=== PATIENT | female | born 1955 | race American Indian/Alaskan Native ===

== ENCOUNTER 2017-09-17 11:31 | Emergency (ER) | payer MEDICAID ==
[2017-09-17 12:11] LABS: Basophils % (Auto) 0.5 % (0.0-1.8); Eosinophils % (Auto) 1.7 % (0.0-4.3); Hemoglobin 12.7 gm/dl (10.1-14.3); Mean Corpuscular HGB Conc 34 % (30-34); Mean Corpuscular Hemoglobin 28 pg (28-32); Mean Corpuscular Volume 83 fl (79-97); Platelet Count 259 K/mm3 (140-440); Red Blood Count 4.59 M/mm3 (3.65-5.03); Red Cell Distribution Width 13.4 % (13.2-15.2); White Blood Count 7.9 K/mm3 (4.5-11.0)
[2017-09-17 12:31] LABS: Alanine Aminotransferase 14 units/L (7-56); Albumin/Globulin Ratio 1.1 %; Alkaline Phosphatase 124 units/L (35-129); Anion Gap 18 mmol/L; BUN/Creatinine Ratio 13; Blood Urea Nitrogen 9 mg/dL (7-17); Calcium 9.4 mg/dL (8.4-10.2); Carbon Dioxide 26 mmol/L (22-30); Chloride 100.5 mmol/L (98-107); Glucose 143 mg/dL (65-100); Lipase 38 units/L (13-60); Potassium 3.9 mmol/L (3.6-5.0); Sodium 141 mmol/L (137-145); Total Protein 7.8 g/dL (6.3-8.2)
[2017-09-17 12:49] LABS: Bilirubin,Urine NEG (Negative); Blood,Urine NEG (Negative); Ketones,Urine NEG (Negative); Leukocyte Esterase,Urine NEG (Negative); Mucus,Urine FEW /HPF; Nitrite,Urine NEG (Negative); Protein,Urine <15 mg/dL mg/dL (Negative); Urobilinogen,Urine < 2.0 mg/dL (<2.0)
--- NOTE | 2017-09-17 13:12 | XRay Report ---
CHEST 2 VIEWS INDICATION: Cough. COMPARISON: None similar. FINDINGS: PA and lateral chest radiographs demonstrate normal cardiomediastinal silhouette. Clear lungs. Mild thoracic spine degenerative spurring. CONCLUSION: No acute disease in the chest. Thank you for the opportunity to participate in this patient's care.
--- NOTE | 2017-09-17 21:32 | Emergency Department Report ---
ED Abdominal Pain HPI - General Chief Complaint: Abdominal Pain Stated Complaint: GENERAL SICKNESS Time Seen by Provider: 09/17/17 21:17 Source: patient Mode of arrival: Ambulatory Limitations: No Limitations - History of Present Illness Initial Comments: 62 YO FEMALE WITH TWO DAYS OF INDISTINCT ABDOMINAL PAIN, WITH NAUSEA,VOMITING. SHE HAS HAD SORE THROAT AND COUGHING WITH SPUTUM PRODUCTION AND WOULD HAVE USE HER EPI PEN EXCEPT SHE DID NOT HAVE ONE. PT HAS NOT UNDERSTANDING OF TRUE USE OF EPI PEN. THIS IS THE FIRST TIME SHE AHD=S HAD ABDOMINAL DISCOMFORT. - Related Data Home Medications Medication Instructions Recorded Confirmed Last Taken Venlafaxine HCl [Effexor Xr] 37.5 mg PO DAILY 01/07/17 01/07/17 01/07/17 amLODIPine [Norvasc] 5 mg PO DAILY 01/07/17 01/07/17 01/07/17 Previous Rx's Medication Instructions Recorded Last Taken Type Cetirizine HCl [Zyrtec] 10 mg PO DAILY #30 tablet 09/17/17 Unknown Rx Pantoprazole [Protonix TAB] 20 mg PO QDAY #20 tablet. 09/17/17 Unknown Rx Allergies Allergy/AdvReac Type Severity Reaction Status Date / Time Unable to Assess Allergy Unverified 01/06/17 23:49 ED Review of Systems ROS: Stated complaint: GENERAL SICKNESS Other details as noted in HPI Constitutional: denies: chills, fever Eyes: denies: eye pain, eye discharge, vision change ENT: denies: ear pain, throat pain Respiratory: cough, other (SPUTUM ). denies: shortness of breath, wheezing Cardiovascular: denies: chest pain, palpitations Endocrine: no symptoms reported Gastrointestinal: abdominal pain, nausea, vomiting. denies: diarrhea Genitourinary: denies: urgency, dysuria, discharge Musculoskeletal: denies: back pain, joint swelling, arthralgia Skin: denies: rash, lesions Neurological: denies: headache, weakness, paresthesias Psychiatric: denies: anxiety, depression Hematological/Lymphatic: denies: easy bleeding, easy bruising ED Past Medical Hx - Past Medical History Previous Medical History?: Yes Hx Asthma: Yes (SEASONAL ALLERGIES) Additional medical history: Allergies - Surgical History Past Surgical History?: Yes Additional Surgical History: foot & hand surgery - Social History Smoking Status: Never Smoker Substance Use Type: None - Medications Home Medications: Home Medications Medication Instructions Recorded Confirmed Last Taken Type Venlafaxine HCl [Effexor Xr] 37.5 mg PO DAILY 01/07/17 01/07/17 01/07/17 History amLODIPine [Norvasc] 5 mg PO DAILY 01/07/17 01/07/17 01/07/17 History Cetirizine HCl [Zyrtec] 10 mg PO DAILY #30 tablet 09/17/17 Unknown Rx Pantoprazole [Protonix TAB] 20 mg PO QDAY #20 tablet. 09/17/17 Unknown Rx ED Physical Exam - General Limitations: No Limitations General appearance: alert, in no apparent distress - Head Head exam: Present: atraumatic, normocephalic - Eye Eye exam: Present: normal appearance, EOMI - ENT ENT exam: Present: mucous membranes moist - Neck Neck exam: Present: normal inspection - Respiratory Respiratory exam: Present: normal lung sounds bilaterally. Absent: respiratory distress - Cardiovascular Cardiovascular Exam: Present: regular rate, normal rhythm. Absent: systolic murmur, diastolic murmur, rubs, gallop - GI/Abdominal GI/Abdominal exam: Present: soft, normal bowel sounds, other (LARGE CENTRIPITAL FAT). Absent: distended, tenderness, guarding, rebound - Rectal Rectal exam: Present: deferred - Extremities Exam Extremities exam: Present: normal inspection, full ROM - Back Exam Back exam: Present: normal inspection, full ROM - Neurological Exam Neurological exam: Present: alert, oriented X3, CN II-XII intact - Psychiatric Psychiatric exam: Present: normal affect, normal mood - Skin Skin exam: Present: warm, dry, intact, normal color. Absent: rash ED Course Vital Signs 09/17/17 09/17/17 09/17/17 11:47 19:50 20:40 Temperature 98.4 F 98.7 F Pulse Rate 72 70 Respiratory 20 16 20 Rate Blood Pressure 152/83 Blood Pressure 127/76 [Left] O2 Sat by Pulse 97 99 99 Oximetry 09/17/17 09/17/17 21:00 23:00 Temperature 98.4 F 98.4 F Pulse Rate 79 78 Respiratory 20 20 Rate Blood Pressure Blood Pressure 111/76 114/79 [Left] O2 Sat by Pulse 99 99 Oximetry ED Medical Decision Making - Lab Data Result diagrams: 09/17/17 11:58 12/22/17 11:58 - Radiology Data Radiology results: report reviewed (ACUTE ABD SERIES:NEGATIVE) - Medical Decision Making LABS ARE NEGATIVE, IF ACUTE ABD SERIES IS NEGATIVE , I WILL SEND HER HOME WITH PROTONIX AD ZYRTEC Critical care attestation.: If time is entered above; I have spent that time in minutes in the direct care of this critically ill patient, excluding procedure time. ED Disposition Clinical Impression: Abdominal pain Qualifiers: Abdominal location: unspecified location Qualified Code(s): R10.9 - Unspecified abdominal pain Seasonal allergies Qualifiers: Chronicity: acute Allergic rhinitis trigger: pollen Qualified Code(s): J30.1 - Allergic rhinitis due to pollen Disposition: DC-01 TO HOME OR SELFCARE Is pt being admited?: No Does the pt Need Aspirin: No Condition: Stable Instructions: Allergies (ED), Abdominal Pain (ED) Prescriptions: Cetirizine HCl [Zyrtec] 10 mg PO DAILY #30 tablet Pantoprazole [Protonix TAB] 20 mg PO QDAY #20 tablet.dr Referrals: JUANI JETER MD [Primary Care Provider] - 3-5 Days Time of Disposition: 00:20
[2017-09-17 23:09] VITALS: BP 114/79
--- NOTE | 2017-09-18 00:10 | XRay Report ---
FINAL REPORT EXAM: XR ABDOMEN 2V HISTORY: ABD PAIN TECHNIQUE: Three views of the abdomen were submitted. FINDINGS: The overall bowel gas pattern is within normal limits. Free air is not seen. There is no evidence of mass effect or suspicious calcifications. The lung bases are clear. The skeletal structures do not show any acute changes. IMPRESSION: No acute process identified.
== END 2017-09-18 00:21 | disposition home or self-care (01) ==
LOC: ED 11:31
DX: R11.2 Nausea with vomiting, unspecified (principal); J30.2 Other seasonal allergic rhinitis; J45.909 Unspecified asthma, uncomplicated
CPT/HCPCS: 36415; 71020; 74020; 80053; 81001; 83690; 85025; 99284

== ENCOUNTER 2018-07-05 09:59 | Emergency (ER) | payer MEDICAID ==
[2018-07-05 11:23] VITALS: BP 157/58
[2018-07-05] MEDS ORDERED: PEPCID PO ONE (12:22)
[2018-07-05] MEDS ORDERED: DECADRON IM ONE (12:22)
--- NOTE | 2018-07-05 12:26 | Emergency Department Report ---
ED General Adult HPI - General Chief complaint: Allergic Reaction Stated complaint: ALLERGIC REACTION/NEEDS SHOT Time Seen by Provider: 07/05/18 12:21 Source: patient Mode of arrival: Ambulatory Limitations: No Limitations - History of Present Illness Initial comments: Patient is a 62-year-old Sonja female who has multiple allergies who states that she believes she has a food allergy from unknown seasoning that a friend put on some food. Patient states she had sensation in her throat was closing H felt lightheaded and itching. Patient took EpiPen yesterday. The patient states she still has some mild shortness of breath and some upper abdominal epigastric crampiness. Patient denies any fevers chills nausea vomiting at this time. - Related Data Home Medications Medication Instructions Recorded Confirmed Last Taken Venlafaxine HCl [Effexor Xr] 37.5 mg PO DAILY 01/07/17 01/07/17 01/07/17 amLODIPine [Norvasc] 5 mg PO DAILY 01/07/17 01/07/17 01/07/17 Previous Rx's Medication Instructions Recorded Last Taken Type Cetirizine HCl [Zyrtec] 10 mg PO DAILY #30 tablet 09/17/17 Unknown Rx Pantoprazole [Protonix TAB] 20 mg PO QDAY #20 tablet.dr 09/17/17 Unknown Rx Famotidine [Pepcid] 40 mg PO QHS #10 tablet 07/05/18 Unknown Rx Prednisone [predniSONE 10 mg 10 mg PO .TAPER #1 tab.ds.pk 07/05/18 Unknown Rx (6-Day Pack, 21 Tabs)] Allergies Allergy/AdvReac Type Severity Reaction Status Date / Time Sulfa (Sulfonamide Allergy Unknown Verified 07/05/18 11:18 Antibiotics) ED Review of Systems ROS: Stated complaint: ALLERGIC REACTION/NEEDS SHOT Other details as noted in HPI Comment: All other systems reviewed and negative ED Past Medical Hx - Past Medical History Hx Asthma: Yes (SEASONAL ALLERGIES) Additional medical history: Allergies - Surgical History Additional Surgical History: foot & hand surgery - Social History Smoking Status: Never Smoker Substance Use Type: Alcohol - Medications Home Medications: Home Medications Medication Instructions Recorded Confirmed Last Taken Type Venlafaxine HCl [Effexor Xr] 37.5 mg PO DAILY 01/07/17 01/07/17 01/07/17 History amLODIPine [Norvasc] 5 mg PO DAILY 01/07/17 01/07/17 01/07/17 History Cetirizine HCl [Zyrtec] 10 mg PO DAILY #30 tablet 09/17/17 Unknown Rx Pantoprazole [Protonix TAB] 20 mg PO QDAY #20 tablet. 09/17/17 Unknown Rx Famotidine [Pepcid] 40 mg PO QHS #10 tablet 07/05/18 Unknown Rx Prednisone [predniSONE 10 mg 10 mg PO .TAPER #1 tab.ds.pk 07/05/18 Unknown Rx (6-Day Pack, 21 Tabs)] ED Physical Exam - General Limitations: No Limitations General appearance: alert, in no apparent distress - Head Head exam: Present: atraumatic, normocephalic - Eye Eye exam: Present: normal appearance - ENT ENT exam: Present: mucous membranes moist - Neck Neck exam: Present: normal inspection - Respiratory Respiratory exam: Present: normal lung sounds bilaterally. Absent: respiratory distress, wheezes, rales, rhonchi - Cardiovascular Cardiovascular Exam: Present: regular rate, normal rhythm. Absent: systolic murmur, diastolic murmur, rubs, gallop - GI/Abdominal GI/Abdominal exam: Present: soft, normal bowel sounds. Absent: distended, tenderness, guarding, rebound - Extremities Exam Extremities exam: Present: normal inspection - Back Exam Back exam: Present: normal inspection - Neurological Exam Neurological exam: Present: alert, oriented X3 - Psychiatric Psychiatric exam: Present: normal affect, normal mood - Skin Skin exam: Present: warm, dry, intact, normal color. Absent: rash ED Course Vital Signs 07/05/18 11:18 Temperature 99.3 F Pulse Rate 72 Respiratory 16 Rate Blood Pressure 157/58 O2 Sat by Pulse 98 Oximetry ED Medical Decision Making - Medical Decision Making She is very stable and does not appear to be having any evidence of anaphylaxis at this time. Patient is requesting a shot of Decadron which will be given and the patient also was asked for a Medrol Dosepak. Critical care attestation.: If time is entered above; I have spent that time in minutes in the direct care of this critically ill patient, excluding procedure time. ED Disposition Clinical Impression: Food allergy Disposition: DC-01 TO HOME OR SELFCARE Is pt being admited?: No Does the pt Need Aspirin: No Condition: Stable Instructions: Food Allergy (ED) Prescriptions: Famotidine [Pepcid] 40 mg PO QHS #10 tablet Prednisone [predniSONE 10 mg (6-Day Pack, 21 Tabs)] 10 mg PO .TAPER #1 tab.ds.pk Referrals: PRIMARY CARE, [Primary Care Provider] - 3-5 Days Time of Disposition: 12:26
== END 2018-07-05 12:45 | disposition home or self-care (01) ==
LOC: ED 09:59
DX: T78.1XXA Other adverse food reactions, not elsewhere classified, initial encounter (principal); J45.909 Unspecified asthma, uncomplicated; Z88.2 Allergy status to sulfonamides; X58.XXXA Exposure to other specified factors, initial encounter
CPT/HCPCS: 96372; 99282; J1100

== ENCOUNTER 2018-12-17 16:48 | Emergency (ER) | payer MEDICAID ==
--- NOTE | 2018-12-17 17:07 | Emergency Department Report ---
Blank Doc - Documentation Documentation: 63 y/o c/o of nausea and migraine headache for x 1 week, bleeding from rectum, discharge from breast, SOB and numbness to fingers. She also began feeling weakness and dizziness and was afraid she was loosing blood so she called EMS
[2018-12-17 17:27] LABS: Basophils # (Auto) 0.1 K/mm3 (0.0-0.1); Basophils % (Auto) 1.4 % (0.0-1.8); Eosinophils # (Auto) 0.1 K/mm3 (0.0-0.4); Eosinophils % (Auto) 1.2 % (0.0-4.3); Hematocrit 38.9 % (30.3-42.9); Hemoglobin 13.2 gm/dl (10.1-14.3); Lymphocytes # (Auto) 2.4 K/mm3 (1.2-5.4); Lymphocytes % (Auto) 25.7 % (13.4-35.0); Mean Corpuscular HGB Conc 34 % (30-34); Mean Corpuscular Volume 83 fl (79-97); Monocytes # (Auto) 0.6 K/mm3 (0.0-0.8); Monocytes % (Auto) 6.5 % (0.0-7.3); Platelet Count 281 K/mm3 (140-440); Red Blood Count 4.68 M/mm3 (3.65-5.03); Red Cell Distribution Width 13.9 % (13.2-15.2)
[2018-12-17 17:52] LABS: Alanine Aminotransferase 19 units/L (7-56); Albumin 4.6 g/dL (3.9-5); BUN/Creatinine Ratio 10; Blood Urea Nitrogen 10 mg/dL (7-17); Calcium 9.8 mg/dL (8.4-10.2); Hemolysis Index 12
--- NOTE | 2018-12-17 18:14 | XRay Report ---
PROCEDURE: XR CHEST ROUTINE 2V TECHNIQUE: PA and lateral chest radiographs. HISTORY: Shortness of breath. COMPARISONS: None available. FINDINGS: Lung volumes normal. No focal consolidation, pleural effusion or pneumothorax. Cardiac silhouette within normal limits. The aorta is tortuous. No subdiaphragmatic free air. No acute osseous abnormality. IMPRESSION: No focal consolidation or pleural effusion. This document is electronically signed by Gilberto Martin DO., December 17 2018 06:12:57 PM ET
[2018-12-18] MEDS ORDERED: CLARITIN PO ONE (00:20)
--- NOTE | 2018-12-18 00:20 | Emergency Department Report ---
ED General Adult HPI - General Chief complaint: Medical Clearance Stated complaint: NAUSEA/VOMIT Time Seen by Provider: 12/17/18 17:04 Source: patient Mode of arrival: Ambulatory Limitations: No Limitations - History of Present Illness Initial comments: Patient is a 63-year-old female who presents with multiple complaints cleanse of headache for one week and nausea and vomiting. She denies having any pain she states that this is been going on for a couple weeks patient states that she has some Severity scale (0 -10): 5 - Related Data Home Medications Medication Instructions Recorded Confirmed Last Taken Venlafaxine HCl [Effexor Xr] 37.5 mg PO DAILY 01/07/17 01/07/17 01/07/17 amLODIPine [Norvasc] 5 mg PO DAILY 01/07/17 01/07/17 01/07/17 Previous Rx's Medication Instructions Recorded Last Taken Type Pantoprazole [Protonix TAB] 20 mg PO QDAY #20 tablet.dr 09/17/17 Unknown Rx Famotidine [Pepcid] 40 mg PO QHS #10 tablet 07/05/18 Unknown Rx Prednisone [predniSONE 10 mg 10 mg PO .TAPER #1 tab.ds.pk 07/05/18 Unknown Rx (6-Day Pack, 21 Tabs)] Butalb/Acetamin/Caff 50-325-40 1 tab PO Q6HR PRN #15 tab 12/18/18 Unknown Rx [Fioricet] Cetirizine HCl [Zyrtec] 10 mg PO DAILY #30 tablet 12/18/18 Unknown Rx Ondansetron [Zofran Odt] 4 mg PO Q8HR #20 tab.rapdis 12/18/18 Unknown Rx Allergies Allergy/AdvReac Type Severity Reaction Status Date / Time Sulfa (Sulfonamide Allergy Unknown Verified 12/17/18 16:48 Antibiotics) ED Review of Systems ROS: Stated complaint: NAUSEA/VOMIT Other details as noted in HPI Constitutional: denies: chills, fever Eyes: denies: eye pain, eye discharge, vision change ENT: denies: ear pain, throat pain Respiratory: denies: cough, shortness of breath, wheezing Cardiovascular: denies: chest pain, palpitations Endocrine: no symptoms reported Gastrointestinal: nausea, vomiting. denies: abdominal pain, diarrhea Genitourinary: denies: urgency, dysuria, discharge Musculoskeletal: denies: back pain, joint swelling, arthralgia Skin: denies: rash, lesions Neurological: headache. denies: weakness, paresthesias Psychiatric: denies: anxiety, depression Hematological/Lymphatic: denies: easy bleeding, easy bruising ED Past Medical Hx - Past Medical History Hx Asthma: Yes (SEASONAL ALLERGIES) Additional medical history: Allergies - Surgical History Past Surgical History?: Yes Additional Surgical History: foot & hand surgery - Social History Smoking Status: Never Smoker Substance Use Type: None - Medications Home Medications: Home Medications Medication Instructions Recorded Confirmed Last Taken Type Venlafaxine HCl [Effexor Xr] 37.5 mg PO DAILY 01/07/17 01/07/17 01/07/17 History amLODIPine [Norvasc] 5 mg PO DAILY 01/07/17 01/07/17 01/07/17 History Pantoprazole [Protonix TAB] 20 mg PO QDAY #20 tablet.dr 09/17/17 Unknown Rx Famotidine [Pepcid] 40 mg PO QHS #10 tablet 07/05/18 Unknown Rx Prednisone [predniSONE 10 mg 10 mg PO .TAPER #1 tab.ds.pk 07/05/18 Unknown Rx (6-Day Pack, 21 Tabs)] Butalb/Acetamin/Caff 50-325-40 1 tab PO Q6HR PRN #15 tab 12/18/18 Unknown Rx [Fioricet] Cetirizine HCl [Zyrtec] 10 mg PO DAILY #30 tablet 12/18/18 Unknown Rx Ondansetron [Zofran Odt] 4 mg PO Q8HR #20 tab.rapdis 12/18/18 Unknown Rx ED Physical Exam - General Limitations: No Limitations General appearance: alert, in no apparent distress - Head Head exam: Present: atraumatic, normocephalic - Eye Eye exam: Present: normal appearance - ENT ENT exam: Present: mucous membranes moist - Neck Neck exam: Present: normal inspection - Respiratory Respiratory exam: Present: normal lung sounds bilaterally. Absent: respiratory distress - Cardiovascular Cardiovascular Exam: Present: regular rate, normal rhythm. Absent: systolic murmur, diastolic murmur, rubs, gallop - GI/Abdominal GI/Abdominal exam: Present: soft, normal bowel sounds - Extremities Exam Extremities exam: Present: normal inspection - Back Exam Back exam: Present: normal inspection - Neurological Exam Neurological exam: Present: alert, oriented X3 - Psychiatric Psychiatric exam: Present: normal affect, normal mood - Skin Skin exam: Present: warm, dry, intact, normal color. Absent: rash ED Course Vital Signs 12/17/18 12/18/18 17:05 00:38 Temperature 98.5 F 98.0 F Pulse Rate 76 80 Respiratory 16 20 Rate Blood Pressure 156/92 152/92 [Left] O2 Sat by Pulse 100 100 Oximetry ED Medical Decision Making - Lab Data Result diagrams: 12/17/18 17:13 12/17/18 17:13 Lab Results 12/17/18 12/17/18 Range/Units 17:13 17:13 WBC 9.3 (4.5-11.0) K/mm3 RBC 4.68 (3.65-5.03) M/mm3 Hgb 13.2 (10.1-14.3) gm/dl Hct 38.9 (30.3-42.9) % MCV 83 (79-97) fl MCH 28 (28-32) pg MCHC 34 (30-34) % RDW 13.9 (13.2-15.2) % Plt Count 281 (140-440) K/mm3 Lymph % (Auto) 25.7 (13.4-35.0) % Floyd % (Auto) 6.5 (0.0-7.3) % Eos % (Auto) 1.2 (0.0-4.3) % Baso % (Auto) 1.4 (0.0-1.8) % Lymph # 2.4 (1.2-5.4) K/mm3 Floyd # 0.6 (0.0-0.8) K/mm3 Eos # 0.1 (0.0-0.4) K/mm3 Baso # 0.1 (0.0-0.1) K/mm3 Seg Neutrophils % 65.2 (40.0-70.0) % Seg Neutrophils # 6.1 (1.8-7.7) K/mm3 Sodium 142 (137-145) mmol/L Potassium 4.5 (3.6-5.0) mmol/L Chloride 103.0 (98-107) mmol/L Carbon Dioxide 27 (22-30) mmol/L Anion Gap 17 mmol/L BUN 10 (7-17) mg/dL Creatinine 1.0 (0.7-1.2) mg/dL Estimated GFR > 60 ml/min BUN/Creatinine Ratio 10 % Glucose 128 H (65-100) mg/dL Calcium 9.8 (8.4-10.2) mg/dL Total Bilirubin 0.30 (0.1-1.2) mg/dL AST 17 (5-40) units/L ALT 19 (7-56) units/L Alkaline Phosphatase 132 H (35-129) units/L Troponin T < 0.010 (0.00-0.029) ng/mL Total Protein 8.1 (6.3-8.2) g/dL Albumin 4.6 (3.9-5) g/dL Albumin/Globulin Ratio 1.3 % - Radiology Data Radiology results: report reviewed Chest x-ray: Shows no acute cardiopulmonary disease - Medical Decision Making Chief Medical diagnosis: Tension headache Differential medical diagnosis: Gastritis, electrolyte abnormality I will get chest x-ray BLOOD work and oral antiemetic and oral pain medication. Patient's lab work is unremarkable also patient home with follow-up with PCP. Discussed plan with patient agrees with plan additional verbal discharge instructions were given Critical care attestation.: If time is entered above; I have spent that time in minutes in the direct care of this critically ill patient, excluding procedure time. ED Disposition Clinical Impression: Tension headache, Nausea Disposition: DC-01 TO HOME OR SELFCARE Is pt being admited?: No Does the pt Need Aspirin: No Condition: Stable Instructions: Tension Headache (ED) Prescriptions: Butalb/Acetamin/Caff 50-325-40 [Fioricet] 1 tab PO Q6HR PRN #15 tab PRN Reason: Headache Ondansetron [Zofran Odt] 4 mg PO Q8HR #20 tab.rapdis Cetirizine HCl [Zyrtec] 10 mg PO DAILY #30 tablet Referrals: SANDRA MEYER MD [Primary Care Provider] - 3-5 Days
[2018-12-18] MEDS ORDERED: ZOFRAN ODT PO ONE (00:21)
[2018-12-18] MEDS ORDERED: FIORICET PO ONE (00:21)
[2018-12-18 00:39] VITALS: BP 152/92
== END 2018-12-18 03:25 | disposition home or self-care (01) ==
LOC: ED 16:48
DX: G44.209 Tension-type headache, unspecified, not intractable (principal); R11.2 Nausea with vomiting, unspecified; J45.909 Unspecified asthma, uncomplicated; Z88.2 Allergy status to sulfonamides
CPT/HCPCS: 36415; 71046; 80053; 84484; 85025; Q0162

== ENCOUNTER 2019-11-26 11:25 | Observation (INO) | payer MEDICAID ==
[2019-11-26] MEDS ORDERED: fentaNYL 100 MCG/2 ML INJ IV ONE (11:43)
[2019-11-26] MEDS ORDERED: ONDANSETRON 4 MG/2 ML INJ IV ONE (11:43)
--- NOTE | 2019-11-26 11:49 | Emergency Department Report ---
HPI - General Chief Complaint: Headache Time Seen by Provider: 11/26/19 11:31 - HPI HPI: Room 4 The patient is a 64-year-old female present with a chief complaint of chest pain dizziness and headache. The patient states for the past 3 days she has had intermittent substernal chest pain described as needles in her chest. Patient states she is also has associated headache dizziness nausea and vomiting. Patient admits to shortness of breath and diaphoresis with her pain. Patient denies any previous trauma. Patient denies paresthesia. Patient states she is never had a stress test or cardiac catheterization ED Past Medical Hx - Past Medical History Previous Medical History?: Yes Hx Asthma: Yes Additional medical history: Allergies - Surgical History Past Surgical History?: Yes Additional Surgical History: foot & hand surgery, ovarian cyst removal - Family History Family history: no significant - Social History Smoking Status: Never Smoker Substance Use Type: None (Denies illicit drug use), Alcohol (Occasional) - Medications Home Medications: Home Medications Medication Instructions Recorded Confirmed Last Taken Type Venlafaxine HCl [Effexor Xr] 37.5 mg PO DAILY 01/07/17 01/07/17 01/07/17 History amLODIPine 5 mg PO DAILY 01/07/17 01/07/17 01/07/17 History Pantoprazole [Protonix TAB] 20 mg PO QDAY #20 tablet. 09/17/17 Unknown Rx Famotidine [Pepcid] 40 mg PO QHS #10 tablet 07/05/18 Unknown Rx Prednisone [predniSONE 10 mg 10 mg PO .TAPER #1 tab.ds.pk 07/05/18 Unknown Rx (6-Day Pack, 21 Tabs)] Butalb/Acetamin/Caff 50-325-40 1 tab PO Q6HR PRN #15 tab 12/18/18 Unknown Rx [Fioricet] Cetirizine HCl [Zyrtec 10mg tab] 10 mg PO DAILY #30 tablet 12/18/18 Unknown Rx Ondansetron [Zofran Odt] 4 mg PO Q8HR #20 tab.rapdis 12/18/18 Unknown Rx ED Review of Systems ROS: Stated complaint: CHEST PAIN Other details as noted in HPI Constitutional: diaphoresis Eyes: denies: eye pain ENT: denies: throat pain Respiratory: shortness of breath Cardiovascular: chest pain Endocrine: no symptoms reported Gastrointestinal: nausea, vomiting Neurological: headache, other (Dizziness) Physical Exam - Physical Exam Vital Signs: Vital Signs 11/26/19 11:32 Temperature 97.9 F Pulse Rate 60 Respiratory 14 Rate Blood Pressure 164/77 [Left] O2 Sat by Pulse 100 Oximetry Physical Exam: GENERAL: The patient is well-developed well-nourished female lying on stretcher not appear to be in acute distress. [] HEENT: Normocephalic. Atraumatic. Extraocular motions are intact. Patient has moist mucous membranes. NECK: Supple. Trachea midline CHEST/LUNGS: Clear to auscultation. There is no respiratory distress noted. HEART/CARDIOVASCULAR: Regular. There is no tachycardia. There is no gallop rub or murmur. ABDOMEN: Abdomen is soft, nontender. Patient has normal bowel sounds. There is no abdominal distention. SKIN: There is no rash. There is no edema. There is no diaphoresis. NEURO: The patient is awake, alert, and oriented. The patient is cooperative. The patient has no focal neurologic deficits. The patient has normal speech MUSCULOSKELETAL: There is no evidence of acute injury. ED Course Vital Signs 11/26/19 11:32 Temperature 97.9 F Pulse Rate 60 Respiratory 14 Rate Blood Pressure 164/77 [Left] O2 Sat by Pulse 100 Oximetry ED Medical Decision Making - Lab Data Result diagrams: 11/26/19 11:48 11/26/19 11:48 Laboratory Tests 11/26/19 11/26/19 11/26/19 11:48 11:48 11:48 RBC 4.65 Hgb 12.9 Hct 39.0 MCV 84 MCH 28 MCHC 33 RDW 13.7 Lymph % (Auto) Woodworking Machine Operator [place] % (Auto) Woodworking Machine Operator Eos % (Auto) Woodworking Machine Operator Baso % (Auto) Woodworking Machine Operator Lymph # Woodworking Machine Operator [place] # Woodworking Machine Operator Eos # Woodworking Machine Operator Baso # Woodworking Machine Operator Seg Neutrophils % Woodworking Machine Operator Seg Neutrophils # Woodworking Machine Operator D-Dimer 718.62 H Sodium 139 Potassium 4.4 Chloride 102.8 Carbon Dioxide 22 Anion Gap 19 BUN 11 Creatinine 0.9 Estimated GFR > 60 BUN/Creatinine Ratio 12 Glucose 151 H Calcium 10.0 Total Creatine Kinase 154 H CK-MB (CK-2) 1.9 CK-MB (CK-2) Rel Index 1.2 Troponin T < 0.010 NT-Pro-B Natriuret Pep 11/26/19 11:48 RBC Hgb Hct MCV MCH MCHC RDW Lymph % (Auto) [place] % (Auto) Eos % (Auto) Baso % (Auto) Lymph # [place] # Eos # Baso # Seg Neutrophils % Seg Neutrophils # D-Dimer Sodium Potassium Chloride Carbon Dioxide Anion Gap BUN Creatinine Estimated GFR BUN/Creatinine Ratio Glucose Calcium Total Creatine Kinase CK-MB (CK-2) CK-MB (CK-2) Rel Index Troponin T NT-Pro-B Natriuret Pep 278.8 - EKG Data -: EKG Interpreted by Dc EKG shows normal: sinus rhythm Rate: bradycardia (56 bpm) - EKG Data When compared to previous EKG there are: previous EKG unavailable Interpretation: nonspecific ST-T wave talya (T wave inversion in lead aVL) - Radiology Data Radiology results: report reviewed (CT head, CT chest), image reviewed (CT head, CT chest) [facility] [address] [place] [address] Cat Scan Report Signed Patient: DEMETRICE DAVE MR#: [id number] : 1955 Acct:[id number] Age/Sex: 64 / F ADM Date: 11/26/19 Loc: ED Attending Dr: Ordering Physician: JC MONTEMAYOR MD Date of Service: 11/26/19 Procedure(s): CT angio chest Accession Number(s): [id number] cc: JC MONTEMAYOR MD CTA CHEST WITH IV CONTRAST INDICATION: Shortness of breath. Chest pain. TECHNIQUE: Axial CT images were obtained through the chest after injection of IV contrast. Coronal oblique 2-D reconstruction images were produced. 3 plane MIP reconstruction images were produced at an [employer] workstation. All CTs at this facility utilize dose reduction techniques including automated exposure control, iterative reconstruction and weight based dosing when appropriate to reduce patient radiation dose to as low as reasonable achievable. COMPARISON: Chest radiograph, 12/17/2018 FINDINGS: Evaluation of the pulmonary arteries demonstrates no evidence of central or segmental filling defects to suggest pulmonary embolism. The heart is normal in size. Evaluation of the lung parenchyma demonstrates no evidence of focal airspace disease or significant pleural effusion. Limited imaging of the upper abdomen demonstrates no evidence of acute abnormality. Evaluation of bony structures demonstrates no evidence of acute bony abnormality.. IMPRESSION: 1. No evidence of pulmonary embolism or acute parenchymal process. Signer Name: Kylah Davenport MD Signed: 11/26/2019 2:17 PM Workstation Name: [id number] Transcribed By: EB Dictated By: Kylah Davenport MD Electronically Authenticated By: Kylah Davenport MD Signed Date/Time: 11/26/191416 DD/ 13 TD/TT: [facility] [address] [id number] Cat Scan Report Signed Patient: DEMETRICE DAVE MR#: [id number] : 1955 Acct:[id number] Age/Sex: 64 / F ADM Date: 11/26/19 Loc: ED Attending Dr: Ordering Physician: JC MONTEMAYOR MD Date of Service: 11/26/19 Procedure(s): CT head/brain wo con Accession Number(s): [id number] cc: JC MONTEMAYOR MD CT BRAIN: 11/26/2019 INDICATION / CLINICAL INFORMATION: Headache, dizziness. 3 day history of right-sided symptoms COMPARISON: None available. FINDINGS: BRAIN/INTRACRANIAL STRUCTURES: Unenhanced CT images of the brain demonstrate no evidence of acute intracranial abnormality. Ventricles and sulci are normal in size and shape. There is no evidence of hemorrhage or mass. There are no abnormal extra-axial fluid collections. EXTRACRANIAL STRUCTURES: Unremarkable. IMPRESSION: No acute abnormality. All CT scans at this location are performed using dose reduction to ALARA by means of automated exposure control. Signer Name: Leno Mendieta MD Signed: 11/26/2019 2:15 PM Workstation Name: [id number] Transcribed By: AO Dictated By: Leno Mendieta MD Electronically Authenticated By: Leno Mendieta MD Signed Date/Time: 11/26/191414 DD/ 12 TD/TT: - Differential Diagnosis ACS, pericarditis, GERD, PE, Critical care attestation.: If time is entered above; I have spent that time in minutes in the direct care of this critically ill patient, excluding procedure time. ED Disposition Clinical Impression: Chest pain, Headache Disposition: DC OP ADMIT IP TO THIS HOSP Is pt being admited?: Yes Does the pt Need Aspirin: Yes Condition: Fair Instructions: Chest Pain (ED) Referrals: PRIMARY CARE, [Primary Care Provider] - 3-5 Days Time of Disposition: 14:27 (Hospitalist paged (Dr. Lott))
[2019-11-26 12:31] LABS: Creatine Kinase MB 1.9 ng/mL (0.0-4.0)
[2019-11-26 12:34] LABS: BUN/Creatinine Ratio 12; Blood Urea Nitrogen 11 mg/dL (7-17); Hemolysis Index 33
[2019-11-26 12:36] LABS: Hemoglobin 12.9 gm/dl (10.1-14.3); Mean Corpuscular HGB Conc 33 % (30-34); Mean Corpuscular Volume 84 fl (79-97); Red Blood Count 4.65 M/mm3 (3.65-5.03); Red Cell Distribution Width 13.7 % (13.2-15.2)
--- NOTE | 2019-11-26 14:19 | Cat Scan Report ---
CT BRAIN: 11/26/2019 INDICATION / CLINICAL INFORMATION: Headache, dizziness. 3 day history of right-sided symptoms COMPARISON: None available. FINDINGS: BRAIN/INTRACRANIAL STRUCTURES: Unenhanced CT images of the brain demonstrate no evidence of acute int racranial abnormality. Ventricles and sulci are normal in size and shape. There is no evidence of hemorrhage or mass. There are no abnormal extra-axial fluid collections. EXTRACRANIAL STRUCTURES: Unremarkable. IMPRESSION: No acute abnormality. All CT scans at this location are performed using dose reduction to ALARA by means of automated expos ure control. Signer Name: Leno Mendieta MD Signed: 11/26/2019 2:15 PM Workstation Name: [id number]
--- NOTE | 2019-11-26 14:21 | Cat Scan Report ---
CTA CHEST WITH IV CONTRAST INDICATION: Shortness of breath. Chest pain. TECHNIQUE: Axial CT images were obtained through the chest after injection of IV contrast. Coronal oblique 2-D reconstruction images were produced. 3 plane MIP reconstruction images were produced at an [employer] workstation. All CTs at this facility utilize dose reduction techniques including automated expos ure control, iterative reconstruction and weight based dosing when appropriate to reduce patient radi ation dose to as low as reasonable achievable. COMPARISON: Chest radiograph, 12/17/2018 FINDINGS: Evaluation of the pulmonary arteries demonstrates no evidence of central or segmental filling defects to suggest pulmonary embolism. The heart is normal in size. Evaluation of the lung parenchyma demons trates no evidence of focal airspace disease or significant pleural effusion. Limited imaging of the upper abdomen demonstrates no evidence of acute abnormality. Evaluation of bon y structures demonstrates no evidence of acute bony abnormality.. IMPRESSION: 1. No evidence of pulmonary embolism or acute parenchymal process. Signer Name: Kylah Davenport MD Signed: 11/26/2019 2:17 PM Workstation Name: [id number]
[2019-11-26 14:36] LABS: Basophils % (Manual) 0 % (0.0-1.8); Platelet Clumps Few; Platelet Estimate Consistent w Auto; RBC Morphology Normal; Total Cells Counted 100
[2019-11-26 14:38] LABS: Platelet Count 204 K/mm3 (140-440)
[2019-11-26] MEDS ORDERED: BUTALB/ACETAMINOPHEN/CAFFEINE TAB PO PRN (16:49)
[2019-11-26] MEDS ORDERED: ONDANSETRON 4 MG/2 ML INJ IV PRN (16:51)
[2019-11-26] MEDS ORDERED: ACETAMINOPHEN 325 MG TAB PO PRN (16:51)
--- NOTE | 2019-11-26 16:51 | History and Physical Report ---
History of Present Illness Date of examination: 11/26/19 Date of admission: 11/26/19 14:33 Medications and Allergies Allergies Allergy/AdvReac Type Severity Reaction Status Date / Time Sulfa (Sulfonamide Allergy Unknown Verified 12/17/18 16:48 Antibiotics) Home Medications Medication Instructions Recorded Confirmed Last Taken Type Venlafaxine HCl [Effexor Xr] 37.5 mg PO DAILY 01/07/17 01/07/17 01/07/17 History amLODIPine 5 mg PO DAILY 01/07/17 01/07/17 01/07/17 History Pantoprazole [Protonix TAB] 20 mg PO QDAY #20 tablet.dr 09/17/17 Unknown Rx Famotidine [Pepcid] 40 mg PO QHS #10 tablet 07/05/18 Unknown Rx Prednisone [predniSONE 10 mg 10 mg PO .TAPER #1 tab.ds.pk 07/05/18 Unknown Rx (6-Day Pack, 21 Tabs)] Butalb/Acetamin/Caff 50-325-40 1 tab PO Q6HR PRN #15 tab 12/18/18 Unknown Rx [Fioricet] Cetirizine HCl [Zyrtec 10mg tab] 10 mg PO DAILY #30 tablet 12/18/18 Unknown Rx Ondansetron [Zofran Odt] 4 mg PO Q8HR #20 tab.rapdis 12/18/18 Unknown Rx Active Meds: Active Medications Amlodipine Besylate (Amlodipine) 5 mg PO DAILY [place] Exam - Constitutional Vitals: Temp Pulse Resp BP Pulse Ox 97.9 F 63 15 107/63 100 11/26/19 11:32 11/26/19 15:56 11/26/19 15:56 11/26/19 15:56 11/26/19 15:56 Results - Labs CBC & Chem 7: 11/26/19 11:48 11/26/19 11:48 Labs: Laboratory Last Values WBC 10.6 K/mm3 (4.5-11.0) 11/26/19 11:48 RBC 4.65 M/mm3 (3.65-5.03) 11/26/19 11:48 Hgb 12.9 gm/dl (10.1-14.3) 11/26/19 11:48 Hct 39.0 % (30.3-42.9) 11/26/19 11:48 MCV 84 fl (79-97) 11/26/19 11:48 MCH 28 pg (28-32) 11/26/19 11:48 MCHC 33 % (30-34) 11/26/19 11:48 RDW 13.7 % (13.2-15.2) 11/26/19 11:48 Plt Count 204 K/mm3 (140-440) 11/26/19 11:48 Lymph % (Auto) Tool Maker Apprentice 11/26/19 11:48 [place] % (Auto) Tool Maker Apprentice 11/26/19 11:48 Eos % (Auto) Tool Maker Apprentice 11/26/19 11:48 Baso % (Auto) Tool Maker Apprentice 11/26/19 11:48 Lymph # Tool Maker Apprentice 11/26/19 11:48 [place] # Tool Maker Apprentice 11/26/19 11:48 Eos # Tool Maker Apprentice 11/26/19 11:48 Baso # Tool Maker Apprentice 11/26/19 11:48 Add Manual Diff Complete 11/26/19 11:48 Total Counted 100 11/26/19 11:48 Seg Neutrophils % Tool Maker Apprentice 11/26/19 11:48 Seg Neuts % (Manual) 68.0 % (40.0-70.0) 11/26/19 11:48 Band Neutrophils % 0 % 11/26/19 11:48 Lymphocytes % (Manual) 27.0 % (13.4-35.0) 11/26/19 11:48 Reactive Lymphs % (Man) 0 % 11/26/19 11:48 Monocytes % (Manual) 3.0 % (0.0-7.3) 11/26/19 11:48 Eosinophils % (Manual) 2.0 % (0.0-4.3) 11/26/19 11:48 Basophils % (Manual) 0 % (0.0-1.8) 11/26/19 11:48 Metamyelocytes % 0 % 11/26/19 11:48 Myelocytes % 0 % 11/26/19 11:48 Promyelocytes % 0 % 11/26/19 11:48 Blast Cells % 0 % 11/26/19 11:48 Nucleated RBC % Not Reportable 11/26/19 11:48 Seg Neutrophils # Tool Maker Apprentice 11/26/19 11:48 Seg Neutrophils # Man 7.2 K/mm3 (1.8-7.7) 11/26/19 11:48 Band Neutrophils # 0.0 K/mm3 11/26/19 11:48 Lymphocytes # (Manual) 2.9 K/mm3 (1.2-5.4) 11/26/19 11:48 Abs React Lymphs (Man) 0.0 K/mm3 11/26/19 11:48 Monocytes # (Manual) 0.3 K/mm3 (0.0-0.8) 11/26/19 11:48 Eosinophils # (Manual) 0.2 K/mm3 (0.0-0.4) 11/26/19 11:48 Basophils # (Manual) 0.0 K/mm3 (0.0-0.1) 11/26/19 11:48 Metamyelocytes # 0.0 K/mm3 11/26/19 11:48 Myelocytes # 0.0 K/mm3 11/26/19 11:48 Promyelocytes # 0.0 K/mm3 11/26/19 11:48 Blast Cells # 0.0 K/mm3 11/26/19 11:48 WBC Morphology Not Reportable 11/26/19 11:48 Hypersegmented Neuts Not Reportable 11/26/19 11:48 Hyposegmented Neuts Not Reportable 11/26/19 11:48 Hypogranular Neuts Not Reportable 11/26/19 11:48 Smudge Cells Not Reportable 11/26/19 11:48 Toxic Granulation Not Reportable 11/26/19 11:48 Toxic Vacuolation Not Reportable 11/26/19 11:48 Dohle Bodies Not Reportable 11/26/19 11:48 Pelger-Huet Anomaly Not Reportable 11/26/19 11:48 Omaira Rods Not Reportable 11/26/19 11:48 Platelet Estimate Consistent w auto 11/26/19 11:48 Clumped Platelets Few 11/26/19 11:48 Plt Clumps, EDTA Not Reportable 11/26/19 11:48 Large Platelets Not Reportable 11/26/19 11:48 Giant Platelets Not Reportable 11/26/19 11:48 Platelet Satelliting Not Reportable 11/26/19 11:48 Plt Morphology Comment Not Reportable 11/26/19 11:48 RBC Morphology Normal 11/26/19 11:48 Dimorphic RBCs Not Reportable 11/26/19 11:48 Polychromasia Not Reportable 11/26/19 11:48 Hypochromasia Not Reportable 11/26/19 11:48 Poikilocytosis Not Reportable 11/26/19 11:48 Anisocytosis Not Reportable 11/26/19 11:48 Microcytosis Not Reportable 11/26/19 11:48 Macrocytosis Not Reportable 11/26/19 11:48 Spherocytes Not Reportable 11/26/19 11:48 Pappenheimer Bodies Not Reportable 11/26/19 11:48 Sickle Cells Not Reportable 11/26/19 11:48 Target Cells Not Reportable 11/26/19 11:48 Tear Drop Cells Not Reportable 11/26/19 11:48 Ovalocytes Not Reportable 11/26/19 11:48 Helmet Cells Not Reportable 11/26/19 11:48 [place] Bodies Not Reportable 11/26/19 11:48 [place] Rings Not Reportable 11/26/19 11:48 Jaquelin Cells Not Reportable 11/26/19 11:48 Bite Cells Not Reportable 11/26/19 11:48 Crenated Cell Not Reportable 11/26/19 11:48 Elliptocytes Not Reportable 11/26/19 11:48 Acanthocytes (Spur) Not Reportable 11/26/19 11:48 Rouleaux Not Reportable 11/26/19 11:48 Hemoglobin C Crystals Not Reportable 11/26/19 11:48 Schistocytes Not Reportable 11/26/19 11:48 Malaria parasites Not Reportable 11/26/19 11:48 [place] Bodies Not Reportable 11/26/19 11:48 Hem Pathologist Commnt No 11/26/19 11:48 D-Dimer 718.62 ng/mlDDU (0-234) H 11/26/19 11:48 Sodium 139 mmol/L (137-145) 11/26/19 11:48 Potassium 4.4 mmol/L (3.6-5.0) 11/26/19 11:48 Chloride 102.8 mmol/L (98-107) 11/26/19 11:48 Carbon Dioxide 22 mmol/L (22-30) 11/26/19 11:48 Anion Gap 19 mmol/L 11/26/19 11:48 BUN 11 mg/dL (7-17) 11/26/19 11:48 Creatinine 0.9 mg/dL (0.7-1.2) 11/26/19 11:48 Estimated GFR > 60 ml/min 11/26/19 11:48 BUN/Creatinine Ratio 12 % 11/26/19 11:48 Glucose 151 mg/dL (65-100) H 11/26/19 11:48 Calcium 10.0 mg/dL (8.4-10.2) 11/26/19 11:48 Total Creatine Kinase 154 units/L (30-135) H 11/26/19 11:48 CK-MB (CK-2) 1.9 ng/mL (0.0-4.0) 11/26/19 11:48 CK-MB (CK-2) Rel Index 1.2 (0-4) 11/26/19 11:48 Troponin T < 0.010 ng/mL (0.00-0.029) 11/26/19 11:48 NT-Pro-B Natriuret Pep 278.8 pg/mL (0-900) 11/26/19 11:48
[2019-11-26] MEDS ORDERED: oxyCODONE /ACETAMINOPHEN 5-325MG TAB PO PRN (16:52)
[2019-11-26] MEDS ORDERED: METOCLOPRAMIDE 10 MG/2 ML INJ IV PRN (16:52)
[2019-11-26] MEDS ORDERED: VENLAFAXINE HCL 37.5 MG PO SCH (17:00)
[2019-11-26] MEDS ORDERED: SODIUM CHLORIDE 0.9% 1000 ML 1,000 ML IV SCH (17:00)
[2019-11-26] MEDS: amLODIPine 5 MG TAB PO SCH (18:23)
[2019-11-26] MEDS: HYDROmorphone 1 MG/1 ML INJ IV PRN (18:24)
[2019-11-26] MEDS: ONDANSETRON 4 MG ODT TAB PO SCH (21:31)
[2019-11-26] MEDS ORDERED: NON-FORMULARY EACH (Famotidine [Pepcid] 40 MG) PO SCH (22:00)
[2019-11-26] MEDS ORDERED: FAMOTIDINE 20 MG/2 ML INJ IV SCH (22:00)
[2019-11-26] MEDS ORDERED: FAMOTIDINE 20 MG TAB PO SCH (22:00)
[2019-11-27] MEDS: HYDROmorphone 1 MG/1 ML INJ IV PRN (04:22)
--- NOTE | 2019-11-27 06:00 | Event Note ---
Date: 11/26/19 See H/p in reports Chest pain-R/o RI
[2019-11-27 06:29] LABS: Basophils % (Auto) 0.1 % (0.0-1.8); Eosinophils # (Auto) 0.2 K/mm3 (0.0-0.4); Eosinophils % (Auto) 2.2 % (0.0-4.3); Hematocrit 35.4 % (30.3-42.9); Hemoglobin 11.7 gm/dl (10.1-14.3); Lymphocytes # (Auto) 2.9 K/mm3 (1.2-5.4); Lymphocytes % (Auto) 39.9 % (13.4-35.0); Mean Corpuscular HGB Conc 33 % (30-34); Mean Corpuscular Volume 83 fl (79-97); Monocytes # (Auto) 0.5 K/mm3 (0.0-0.8); Monocytes % (Auto) 7.6 % (0.0-7.3); Platelet Count 249 K/mm3 (140-440); Red Blood Count 4.24 M/mm3 (3.65-5.03); Red Cell Distribution Width 13.8 % (13.2-15.2)
[2019-11-27 06:47] LABS: Alanine Aminotransferase 11 units/L (7-56); Albumin 4.1 g/dL (3.9-5); BUN/Creatinine Ratio 9; Blood Urea Nitrogen 9 mg/dL (7-17); Calcium 9.7 mg/dL (8.4-10.2); Hemolysis Index 5
[2019-11-27] MEDS: ONDANSETRON 4 MG ODT TAB PO SCH (06:52)
--- NOTE | 2019-11-27 08:10 | History and Physical Report ---
CHIEF COMPLAINT: Chest pain for 3 days. Headache for 3 days. HISTORY OF PRESENT ILLNESS: A 64-year-old female who presents with chest pain for 3 days. Chest pain is about 6 on a scale of 1 to 10. Also has severe headache, dizziness, nausea and vomiting, also diaphoresis. No palpitations. The patient never had a cardiac cath or a stress test in the past. No exacerbating or relieving factors. No radiation of the chest pain. PAST MEDICAL HISTORY: Significant for asthma. PAST SURGICAL HISTORY: Significant for foot and hand surgery. Ovarian cyst removal. FAMILY HISTORY: Hypertension. SOCIAL HISTORY: Does not smoke. Occasional alcohol. REVIEW OF SYSTEMS: Significant for left-sided chest pain, which is intermittent and sharp in nature, associated with dizziness and nausea and vomiting. Otherwise, review of systems negative. PHYSICAL EXAMINATION: GENERAL: Elderly female, cooperative during examination. VITAL SIGNS: Blood pressure 131/72, temperature 97.8, pulse is 62, respirations 18. HEENT: Unremarkable. Pupils are equal and reactive. NECK: Supple. No lymphadenopathy, no thyromegaly. LUNGS: Clear to auscultation and percussion. Good air entry. CARDIOVASCULAR: S1, S2 heard. No gallop, no murmur, no rub. Apical impulse in the left fifth intercostal space, midclavicular line. ABDOMEN: Soft and benign. No hepatosplenomegaly. No guarding, no rigidity. Hernial orifices are normal. EXTREMITIES: Good pedal pulses. No pedal edema. CENTRAL NERVOUS SYSTEM: Alert and oriented x 4, nonfocal exam. SKIN: Normal. IMAGING STUDIES: CT angiogram shows no pulmonary embolism. Chest x-ray done, no acute findings. Head CT, no acute findings. EKG, normal sinus rhythm. LABORATORY DATA: CBC is normal. BMP is normal. Glucose is 151, A1c is 7.0. Creatine kinase is 154. Troponins are negative. ASSESSMENT AND PLAN: 1. Chest pain, rule out myocardial infarction, chest pain protocol. Serial troponins, stress test in the morning. Differential of gastroesophageal reflux disease and costochondritis because of nausea and vomiting. 2. Gastroesophageal reflux disease. Continue PPIs. 3. Type 2 diabetes, early onset. The patient is to be counseled about it. Did not have A1c at the time of examination. The patient is to be started on metformin and to be counseled by the primary team about the early onset diabetes because of A1c of 7.0. 4. Deep venous thrombosis prophylaxis. Heparin 5000 q. 12. In summary, the patient has chest pain, rule out myocardial infarction; early onset diabetes. JOB# [id number] GAVIN/LEW DYSON
[2019-11-27] MEDS ORDERED: metFORMIN XR 500MG TAB PO SCH (09:00)
[2019-11-27] MEDS ORDERED: PANTOPRAZOLE 20 MG TAB PO SCH (10:00)
[2019-11-27] MEDS ORDERED: CETIRIZINE 10 MG TAB PO SCH (10:00)
[2019-11-27] MEDS ORDERED: HEPARIN 5,000 UNIT/1 ML VIAL SUB-Q SCH (10:00)
[2019-11-27] MEDS: amLODIPine 5 MG TAB PO SCH (10:47)
--- NOTE | 2019-11-27 12:50 | Discharge Summary ---
Providers - Providers Date of Admission: 11/26/19 14:33 Date of discharge: 11/27/19 Attending physician: ABUNDIO BECKER MD Primary care physician: PRUDENCIO HICKS MD Hospitalization Reason for admission: Chest pain Condition: Stable Pertinent studies: Stress test Hospital course: 64-year-old female present with a chief complaint of chest pain dizziness and headache. The patient states for the past 3 days she has had intermittent substernal chest pain described as needles in her chest. Patient states she is also has associated headache dizziness nausea and vomiting. Patient admits to shortness of breath and diaphoresis with her pain. Patient denies any previous trauma. Patient denies paresthesia. Patient states she is never had a stress test or cardiac catheterization. Patient was admitted to the floor, troponin was negative, EKG was normal. Stress test was negative for acute ischemia. patient was hemodynamically stable and discharged home. Patient's hemoglobin A1c was 7 & given metformin 500mg po BID. follow up with PCP. Disposition: TO HOME OR SELFCARE Time spent for discharge: 31 minutes - Discharge Diagnoses (1) Chest pain Status: Acute (2) Headache Status: Acute Core Measure Documentation - Palliative Care Palliative Care/ Comfort Measures: Not Applicable - Core Measures Any of the following diagnoses?: none Exam - Physical Exam Narrative exam: Not in cardiopulmonary distress. The patient appeared well nourished and normally developed. Vital signs as documented. Head exam is unremarkable. No scleral icterus . Neck is without jugular venous distension, thyromegaly, or carotid bruits. Lungs are clear to auscultation. Cardiac exam reveals regular rate and Rhythm. Abdominal exam reveals normal bowel sounds, nontender, no organomegaly. Extremities are nonedematous and both femoral and pedal pulses are normal. CUPBOARD BUILDER: Alert and oriented 3. No focal weakness. - Constitutional Vitals: Temp Pulse Resp BP Pulse Ox 98.6 F 54 L 20 123/59 99 11/27/19 08:07 11/27/19 10:47 11/27/19 08:07 11/27/19 10:47 11/27/19 08:07 Plan Activity: no restrictions Weight Bearing Status: Full Weight Bearing Diet: diabetic Follow up with: PRIMARY CAREMD [Primary Care Provider] - 3-5 Days Prescriptions: metFORMIN [Glucophage] 500 mg PO BID #60 tablet
[2019-11-27 16:53] VITALS: BP 126/85
== END 2019-11-27 20:52 | disposition home or self-care (01) ==
LOC: ED 11:25 → 4A 14:33
PROVIDERS: ADMIT Internal Medicine; ATTEND Internal Medicine
DX: R07.89 Other chest pain (principal); K21.9 Gastro-esophageal reflux disease without esophagitis; E11.9 Type 2 diabetes mellitus without complications; J45.909 Unspecified asthma, uncomplicated; R51 Headache; R42 Dizziness and giddiness
CPT/HCPCS: 36415; 70450; 71275; 80048; 80053; 82550; 82553; 83036; 83880; 84484; 85007; 85025; 85379; 93005; 93010; 93017; 96372; 96374; 96375; 96376; 99285; G0378; J1170; J1644; J2405; J3010; Q9967; Q0162